=== PATIENT | female | born 1985 | race Caucasian/White ===

== ENCOUNTER 2022-12-04 16:36 | Emergency (ER) | payer BC, OTHER ==
[~2022-12-04] VITALS: Ht 170.2 cm; Wt 70.0 kg
[2022-12-04 17:19] VITALS: BP 125/60
[2022-12-04] MEDS ORDERED: CEPH-510 PO (17:32)
[2022-12-04] MEDS ORDERED: TETANUS-DIPTH-ACEL PERTUSSIS 0.5ML SYR Tdap IM ONE (17:45)
== END 2022-12-04 17:50 | disposition home or self-care (01) ==
LOC: ER 16:36
DX: S61.317A Laceration without foreign body of left little finger with damage to nail, initial encounter (principal); V18.0XXA Pedal cycle driver injured in noncollision transport accident in nontraffic accident, initial encounter; Y93.89 Activity, other specified; Y92.89 Other specified places as the place of occurrence of the external cause; Y99.8 Other external cause status
CPT/HCPCS: 12001; 73140; 90471; 90715

== ENCOUNTER 2024-08-12 15:40 | Emergency (ER) | payer BC ==
[~2024-08-12] VITALS: Ht 170.2 cm; Wt 61.0 kg
[~2024-08-12 15:40] MED LIST: CEPH-510 PO
[2024-08-12 16:53] LABS: Basophils # (auto) 0 10 ^3/uL (0-0.2); Basophils % (auto) 0.5 % (0.0-2.0); Eosinophils # (auto) 0.2 10 ^3/uL (0-0.8); Eosinophils % (auto) 2.7 % (0.0-7.0); Hematocrit 41.1 % (36.0-46.0); Hemoglobin 14.1 g/dL (12.2-16.2); Lymphocytes # (auto) 1.1 10 ^3/uL (0.4-5.4); Lymphocytes % (auto) 17.9 % (10.0-50.0); Mean Corpuscular Hemoglobin 29.9 pg (28.0-32.0); Mean Corpuscular Hgb Conc. 34.3 g/dL (32.0-36.0); Mean Corpuscular Volume 87.1 fL (80.0-100.0); Monocytes # (auto) 0.5 10 ^3/uL (0-1.3); Monocytes % (auto) 8.2 % (0.0-12.0); Neutrophils # (auto) 4.2 10 ^3/uL (1.6-8.6); Neutrophils % (auto) 70.7 % (37.0-80.0); Platelet Count (auto) 278 10^3/uL (140-450); Red Blood Cells 4.73 10^6/uL (4.0-5.20); Red Cell Distribution Width 12.2 % (11.8-14.3); White Blood Cell 5.9 10^3/uL (4.4-10.8)
[2024-08-12] MEDS ORDERED: GUAI-41 PO (18:06)
[2024-08-12] MEDS ORDERED: OSEL75CA5 PO (18:06)
[2024-08-12] MEDS ORDERED: AZITTAB2 PO (18:06)
[2024-08-12 18:11] LABS: COVID19 ANTIGEN SOFIA FIA NEGATIVE (NEGATIVE)
[2024-08-12 18:58] LABS: Urine Blood Negative /uL (Negative); Urine Clarity Clear (Clear); Urine Color Dark-Yellow (Yellow); Urine Protein, UAD TRACE (Negative); Urine Specific Gravity 1.021 (1.001-1.035); Urine Urobilinogen 2 mg/dL (Negative); Urine pH 5.5 (5.0-9.0)
[2024-08-12 19:30] VITALS: BP 115/53; PULSE 80; RESP 20; TEMP 98.3; O2SAT 98
[2024-08-12] MEDS ORDERED: ONDANSETRON ODT 4 MG TAB PO ONE (19:30)
[2024-08-12] MEDS ORDERED: HYDROcodone-ACET 5/325MG TAB PO ONE (19:30)
== END 2024-08-12 19:29 | disposition home or self-care (01) ==
LOC: ER 15:40
DX: B34.9 Viral infection, unspecified (principal); Z79.899 Other long term (current) drug therapy; Z20.822 Contact with and (suspected) exposure to COVID-19
CPT/HCPCS: 36415; 71045; 81003; 85025; 87426; 99284; Q0162